=== PATIENT | female | born 1955 | race Two or more races ===

== ENCOUNTER 2022-03-16 15:01 | Emergency (ER) | payer OTHER ==
[~2022-03-16] VITALS: Ht 157.5 cm; Wt 77.1 kg
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
--- NOTE | 2022-03-16 15:21 | NUR ---
[employer]ICE OFFICERS [employer] [id number] AT BEDSIDE FOR INVESTIGATION
--- NOTE | 2022-03-16 16:05 | NUR ---
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
--- NOTE | 2022-03-16 16:17 | NUR ---
PICKED UP BY [employer] MEM[employer] FOR CT SCAN
[2022-03-16] MEDS ORDERED: FAMOTIDINE/PF INJ 20 MG/2 ML VIAL IV ONE ×2 (16:29→16:30)
[2022-03-16] MEDS ORDERED: methylPREDNISolone SOD SUCC 125 MG/2ML VIAL ONE (16:29)
[2022-03-16] MEDS ORDERED: diphenhydrAMINE HCL 50 MG/ML VIAL ONE (16:29)
[2022-03-16] MEDS ORDERED: HYDROCODONE/APAP 5/325MG TABLET ONE (16:29)
[2022-03-16] MEDS ORDERED: HYDROCODONE/APAP 5/325MG TABLET PO ONE (16:30)
[2022-03-16] MEDS ORDERED: diphenhydrAMINE HCL 50 MG/ML VIAL IV ONE (16:30)
[2022-03-16] MEDS ORDERED: methylPREDNISolone SOD SUCC 125 MG/2ML VIAL IV ONE (16:30)
[2022-03-16 17:01] LABS: BASOPHILS % (AUTO) 0.4 % (0.0-2.0); EOSINOPHILS % (AUTO) 0.7 % (0.0-6.0); HEMATOCRIT 37 % (33-45); HEMOGLOBIN 12.2 g/dL (11.5-14.8); LYMPHOCYTES % (AUTO) 8.8 % (20.0-44.0); MEAN CORPUSCULAR HGB CONC 33 g/dl (31.0-36.0); MEAN CORPUSCULAR VOLUME 90 fL (82-100); MONOCYTES # (AUTO) 0.7 K/uL (0.1-1.30); MONOCYTES % (AUTO) 6.4 % (2.0-12.0); NEUTROPHILS # (AUTO) 9.3 K/uL (1.8-8.9); NEUTROPHILS % (AUTO) 83.7 % (43.0-81.0); PLATELET COUNT (AUTO) 155 K/uL (150-450); RED BLOOD CELL COUNT(AUTO) 4.16 MIL/uL (4.0-5.2); WHITE BLOOD COUNT (AUTO) 11.1 K/uL (4.3-11.0)
[2022-03-16 17:32] LABS: CALCIUM, SERUM 8.5 mg/dL (8.5-10.1); CREATININE 0.8 mg/dL (0.6-1.3); GLUCOSE 118 mg/dL (74-106); UREA NITROGEN, BLOOD 20 mg/dL (7-18)
[2022-03-16] MEDS ORDERED: IOHEXOL-300 100 ML VIAL IV ONE (17:35)
[2022-03-16] MEDS ORDERED: CT SWABBABLE VALVE TRANS SET 1 EA INFUS.SET MC ONE (17:36)
[2022-03-16] MEDS ORDERED: IV NS 0.9% 250 ML IV ONE (17:36)
[2022-03-16 18:26] LABS: CARBON DIOXIDE 27 mmol/L (21-32); CHLORIDE 105 mmol/L (98-107); POTASSIUM 3.1 mmol/L (3.5-5.1); SODIUM SERUM 141 mmol/L (136-145)
[2022-03-16] MEDS ORDERED: POTASSIUM CHLORIDE 20 MEQ TAB.PRT.SR PO ONE ×2 (18:30→20:21)
[2022-03-16] MEDS ORDERED: CYCL5TAB PO (18:35)
[2022-03-16] MEDS ORDERED: IBUP-1955 PO (18:35)
--- NOTE | 2022-03-16 20:01 | NUR ---
Patient discharged to home in stable condition. Written and verbal after care instructions given. Patient verbalizes understanding of instruction. IV removed. Catheter intact and site benign. Pressure and 4x4 applied to site. No bleeding noted.
[2022-03-17 04:24] VITALS: BP 121/61
== END 2022-03-17 04:24 | disposition home or self-care (01) ==
LOC: ER 15:05
DX: S29.012A Strain of muscle and tendon of back wall of thorax, initial encounter (principal); S20.214A Contusion of middle front wall of thorax, initial encounter; S30.1XXA Contusion of abdominal wall, initial encounter; Z79.899 Other long term (current) drug therapy; V43.52XA Car driver injured in collision with other type car in traffic accident, initial encounter; Y93.89 Activity, other specified; Y92.89 Other specified places as the place of occurrence of the external cause; Y99.8 Other external cause status
CPT/HCPCS: 99285; 71260; 96374; 96375; 93005; 74177; 85025; 80048; 36415; 84484; J1200; J3490; J2930; J7050; Q9967